=== PATIENT | female | born 1975 | race Caucasian/White ===

== ENCOUNTER 2016-02-13 13:50 | Emergency (ER) | payer MEDICAID, OTHER ==
[2016-02-13] MEDS ORDERED: Naproxen 500 MG TAB ONE (14:24)
[2016-02-13] MEDS ORDERED: HYDROcodone/Acetaminophen 10/325 mg Tablet ONE (14:24)
--- NOTE | 2016-02-13 14:46 | RAD ---
RIGHT SHOULDER 3 VIEWS: HISTORY: Joint pain. FINDINGS: Deformity to the distal clavicle is compatible with an old fracture. No signs of any acute fracture or dislocation. IMPRESSION: No evidence of acute injury. POS: ERMA
--- NOTE | 2016-02-13 15:42 | ERRECORD ---
[facility] EMERGENCY RECORD HPI SHOULDER (14:24 LLDO) CHIEF COMPLAINT: Patient presents for evaluation of decreased range of motion, Patient presents for evaluation of decreased use, Patient presents for evaluation of injury, Patient presents for evaluation of pain, Patient presents for evaluation of tenderness, Denies suspected foreign body, Patient presents for evaluation of weakness, Patient presents for evaluation of right shoulder. pain for 3+ days. not sure of the cause but has a couple of possible triggere. see triage note. has about 80% reduction in rom and a globally very tender shuolder and distal clavicle. has full rom and sensation of elbow distad. HISTORIAN: History provided by patient. MECHANISM OF INJURY: Unknown mechanism, Mechanism of injury: Sport or activity, Mechanism of injury is unknown, No alcohol use associated with this incident, No drug use associated with this incident, No domestic violence associated with this incident. LOCATION: Symptoms are generalized, Radiation is not present, Patient is right handed. QUALITY: Pain is dull in nature, described as aching, described as BECOMES SHARP WITH MOVEMENT OR PALPATION. SEVERITY: Maximum severity of symptoms severe, Currently symptoms are moderate, WORSE WITH MOVEMENT OR PALPATION. TIME COURSE: Sudden onset of symptoms, Symptoms are worsening, are constant. ASSOCIATED WITH: Associated with decreased range of motion, Associated with decreased use, Associated with swelling. EXACERBATED BY: Patient's condition exacerbated by movement, Patient's condition exacerbated by PALPATION. RELIEVED BY: Patient's condition relieved by remaining still, Patient's condition relieved by rest. ROS CONSTITUTIONAL: Negative constitutional review of systems, Historian denies chills, denies fatigue, denies fever. (14:32 LLDO) EYES: Negative eye review of systems, Historian denies eye pain, denies eye redness, denies eye discharge. (14:32 LLDO) ENT: Negative ears, nose, throat review of systems, Historian denies epistaxis, denies rhinorrhea, denies sinus pain, denies sore throat. (14:32 LLDO) MUSCULOSKELETAL: Historian reports arthralgias, denies back pain, denies deformity, reports fall, reports injury, reports joint swelling, reports myalgias, denies neck pain. ONLY IN HPI. (14:28 LLDO) SKIN: Negative skin review of systems, Historian denies cellulitis, denies rash, denies skin changes, denies skin lesions. (14:32 LLDO) NEUROLOGIC: Negative neurologic review of systems, Historian &a-1R&a+25V*p+0X*j3752O*c202B*c15G*c2P*p-0X&a-25V&a+1R Name: Leydi Shafer : 1975 F40 MedRec: [id number] AcctNum: [id number] Prepared: SatFeb 13, 2016 23:14 by Interface Page [address] [facility] EMERGENCY RECORD denies confusion, denies dizziness, denies focal weakness, denies mental status changes. (14:32 LLDO) HEMO/LYMPHATIC: Normal hematologic/lymphatic system review, Historian denies abnormal blood clotting, denies gum bleeding, denies petechiae. (14:32 LLDO) ALLERGIC/IMMUNOLOGIC: Normal allergy/immunologic system review, Historian denies eczema, denies environmental allergies, denies food allergies. (14:32 LLDO) PSYCHIATRIC: Negative psychiatric review of systems, Historian denies alcohol abuse, denies anxiety, denies depression, denies drug abuse, denies hallucinations. (14:32 LLDO) NOTES: All systems reviewed, negative except as described above. (14:28 LLDO) PAST MEDICAL HISTORY MEDICAL HISTORY: Past medical history includes pulmonary disease, asthma. (14:00 MDEB) FEMALE SURGICAL HISTORY: Surgical history of orthopedic surgery, RIGHT FOOT, Surgical history of tubal ligation. (14:00 MDEB) PSYCHIATRIC HISTORY: Psychiatric history includes, bipolar disorder. (14:00 MDEB) SOCIAL HISTORY: Patient currently uses tobacco, Patient smokes cigarettes, Patient smokes 1/2 packs per day, Patient denies alcohol use, Patient denies drug use. (14:00 MDEB) NOTES: Nursing records reviewed, Agree with nursing records, Medication list reviewed. (14:31 LLDO) KNOWN ALLERGIES erythromycin: Reaction: Anaphylaxis Fluoxetine (Unconfirmed) MULT ANTIDEPRESSANTS (Unconfirmed) Paxil Serotonin Reuptake Inhibitors (Unconfirmed) Tramadol (Unconfirmed) UltRAM Zoloft CURRENT MEDICATIONS No recorded medications VITAL SIGNS (13:58 MDEB) VITAL SIGNS: BP: 124/61, Pulse: 78, Resp: 20, Temp: 98.1 (Tympanic), Pain: 8, O2 sat: 99 on Room Air, Time: 02/13/2016 13:58. PHYSICAL EXAM CONSTITUTIONAL: Vital Signs Reviewed, Patient afebrile, Pulse normal, Blood pressure normal, Respiratory rate normal, Patient appears, uncomfortable, Patient appears, in moderate pain distress, MILD-MOD AT REST BUT WORSE &a-1R&a+25V*p+0X*w3166R*c202B*c15G*c2P*p-0X&a-25V&a+1R Name: Leydi Shafer : 1975 F40 MedRec: [id number] AcctNum: [id number] Prepared: SatFeb 13, 2016 23:14 by Interface Page [address] [facility] EMERGENCY RECORD WITH ANY MOVEMENT OR PALPATION, Patient alert and oriented to person, place and time, Nursing notes reviewed. (14:29 LLDO) HEAD: Head exam normal, Head exam included findings of head atraumatic, normocephalic. (14:32 LLDO) EYES: Eye exam normal, Eye exam included findings of eyelids normal to inspection, Pupils equally round and reactive to light, Extraocular muscles intact. (14:32 LLDO) ENT: ENT exam normal, Ear exam normal, Nose exam normal. (14:32 LLDO) NECK: Neck exam normal, Neck exam included findings of normal range of motion, Trachea midline, no meningeal signs, no tenderness. (14:32 LLDO) BACK: Back exam normal, Back exam included findings of normal inspection, range of motion normal. (14:32 LLDO) UPPER EXTREMITY: Left clavicle exam normal, Right clavicle exam included findings of, tenderness, Left shoulder exam normal, Right shoulder exam included findings of, swelling, tenderness, active range of motion abnormal, passive range of motion abnormal, distal pulses normal, capillary refill less than 2 seconds, distal motor intact, distal sensory intact, axillary nerve intact, Left upper arm exam normal, Right upper arm exam included findings of, tenderness, Left elbow exam normal, Right elbow exam normal, Left forearm exam normal, Right forearm exam normal, Left wrist exam normal, Right wrist exam normal, Left hand exam normal, Right hand exam normal. (14:29 LLDO) LOWER EXTREMITY: Lower extremity exam normal, Lower extremity exam included findings of inspection normal, Range of motion normal. (14:32 LLDO) NEURO: Neuro exam normal, Neuro exam findings include patient oriented to person, place and time, Speech normal, [place] coma scale 15. (14:32 LLDO) SKIN: Skin exam normal, Skin exam included findings of skin warm, dry, and normal in color, no rash. (14:32 LLDO) PSYCHIATRIC: Psychiatric exam normal, Psychiatric exam included findings of patient oriented to person place and time, Normal affect. (14:32 LLDO) MEDICATION ADMINISTRATION SUMMARY Drug Name: [place], Dose Ordered: 10-325 mg, Route: Oral, Status: Given, Time: 14:25 02/13/2016, Drug Name: Naprosyn, Dose Ordered: 500 mg, Route: Oral, Status: Given, Time: 14:25 02/13/2016, Detailed record available in Medication Service section. PROBLEM LIST No recorded problems DIAGNOSIS (14:59 LLDO) &a-1R&a+25V*p+0X*l7329L*c202B*c15G*c2P*p-0X&a-25V&a+1R Name: Leydi Shafer : 1975 F40 MedRec: [id number] AcctNum: [id number] Prepared: SatFeb 13, 2016 23:14 by Interface Page [address] [facility] EMERGENCY RECORD FINAL: PRIMARY: Shoulder contusion. PRESCRIPTION (14:59 LLDO) naproxen: TABLET : 500 mg : ORAL : Quantity: 1 Unit: tab(s) Route: ORAL Schedule: once a day (at bedtime) Dispense: 30 May substitute. Refills: No Refills . NOTES: No Refills. Tylenol-Codeine #3: TABLET : 300 mg-30 mg : ORAL : Quantity: 1-2 Unit: tab(s) Route: ORAL Schedule: every 4 hours prn Dispense: 24 May substitute. Refills: No Refills POTENTIAL ALLERGY REACTION: 'UltRAM [tramadol/tramadol HCl]' Override Rationale: Reviewed with patient, pt says can safely take this med. NOTES: ^s=No Refills No Refills. DISPOSITION PATIENT: Disposition Type: Discharge, Disposition: *Discharge Home. (14:59 MISAEL) Patient left the department. (15:36 KRISHAN) Muñiz: MISAEL=MD Monet, Roger NICKERSON=SPIKE Holm, Iesha &a-1R&a+25V*p+0X*j1560X*c202B*c15G*c2P*p-0X&a-25V&a+1R Name: Leydi Shafer : 1975 F40 MedRec: [id number] AcctNum: [id number] Prepared: SatFeb 13, 2016 23:14 by Interface Page 4 of 4 pMD MTDD
--- NOTE | 2016-02-13 15:46 | PICIS ---
[facility] EMERGENCY RECORD TRIAGE (14:00 MDEB) PATIENT: NAME: Leydi Shafer, AGE: 40, GENDER: female, : Sat1975, TIME OF GREET: SatFeb 13, 2016 13:51, PREFERRED LANGUAGE: Serbian, RACE: WHITE, ETHNICITY: Not or , ECODE BILLING MAP: [facility], SSN: [id number], Zip Code: [address], KG WEIGHT: 118.84, PHONE: , , , PERSON ID: [id number], PCP: HELADIO. (14:00 MDEB) TRIAGE NOTES: R SHOULDER PAIN - HAS BEEN HORSEBACK RIDING ET ROLLED A 4 GREWAL 4 DAYS AGO. (14:00 MDEB) COMPLAINT: RT SHOULDER PAIN. (14:00 MDEB) ADMISSION: URGENCY: 3 Urgent, ADMISSION SOURCE: Home, TRANSPORT: Walk-in, BED: TRIAGE. (14:00 MDEB) ASSESSMENT: Assessment: SELF LIMITING ROM - FULL ROM FROM ELBOW TO HAND. (14:00 MDEB) PAIN: Patient complains of pain described as, aching, on a scale 0-10 patient rates pain as 8. (14:00 MDEB) IMMUNIZATIONS: Tetanus immunization up to date. (14:00 MDEB) TRIAGE SCREENING: Patient denies suicidal ideation, Patient denies presence of domestic violence. (14:00 MDEB) PROVIDERS: TRIAGE NURSE: Iesha Holm RN. (14:00 MDEB) VITAL SIGNS: BP 124/61, Pulse 78, Resp 20, Temp 98.1, (Tympanic), Pain 8, O2 Sat 99, on Room Air, Time 02/13/2016 13:58. (13:58 MDEB) PREVIOUS VISIT ALLERGIES: erythromycin, Paxil, UltRAM, Zoloft. (14:00 MDEB) KNOWN ALLERGIES erythromycin: Reaction: Anaphylaxis Fluoxetine (Unconfirmed) MULT ANTIDEPRESSANTS (Unconfirmed) Paxil Serotonin Reuptake Inhibitors (Unconfirmed) Tramadol (Unconfirmed) UltRAM Zoloft CURRENT MEDICATIONS No recorded medications VITAL SIGNS (13:58 MDEB) VITAL SIGNS: BP: 124/61, Pulse: 78, Resp: 20, Temp: 98.1 (Tympanic), Pain: 8, O2 sat: 99 on Room Air, Time: 02/13/2016 13:58. NURSING ASSESSMENT: EXTREMITY UPPER (14:00 KRISHAN) CONSTITUTIONAL: Patient arrives ambulatory, Gait steady, History obtained from patient, Patient appears, anxious, in distress due to pain, uncomfortable, Patient cooperative, Patient alert, Oriented to person, place and time, Skin warm, Skin dry, Skin normal in color, Mucous membranes pink, Mucous &a-1R&a+25V*p+0X*r1425T*c202B*c15G*c2P*p-0X&a-25V&a+1R Name: Leydi Shafer : 1975 F40 MedRec: [id number] AcctNum: [id number] Prepared: SatFeb 13, 2016 23:20 by Interface Page 1 of 6 pMD [facility] EMERGENCY RECORD membranes moist, Patient is well-groomed, Patient complains of R SHOUDLER PAIN FOR SEVERAL DAYS, PT REPORTS SHE HAS BEEN HORSEBACK RIDING ET ON A 4 GREWAL THAT TIPPED OVER ON THE R SIDE AT APPROX 20 MPH - SHE IS UNCLEAR OF WHICH EVENT IS CAUSING THE PAIN. PAIN: aching pain, to the right shoulder, on a scale 0-10 patient rates pain as 8, Pain exacerbated by nothing, Nothing has been tried to alleviate the pain. LEFT UPPER EXTREMITY: Left upper extremity assessment findings include capillary refill less than 2 seconds, Skin color normal to hand, Skin temperature to hand warm, Distal sensation intact, Muscle tone normal. RIGHT UPPER EXTREMITY: Right upper extremity assessment findings include capillary refill less than 2 seconds, Skin color normal to hand, Skin temperature to hand warm, Distal sensation intact, Muscle tone normal, radial pulse is +4, brachial pulse is +4, Inspection findings include swelling, to R SHOULDER, SLIGHT SWELLING - NO NOTED ECHHYMOSIS TO SHOULDER. NOTES: Emotional support needed and given, Patient tolerated procedure well. SAFETY: Cart/Stretcher in lowest position, Family at bedside, Call light within reach, Hospital ID band on. ORDER DETAILS Order Name: Miscellaneous Nurse Order(s), Status: Done, Time: 14:18 02/13/2016, User: KRISHAN, - Ordered for: MD Healy Lloyd, - Entered by: MD Healy Lloyd - SatFeb 13, 2016 14:14, - Quantity: 1, Order Name: XR Shoulder Rt 3 View STANDARD, Status: Active, Time: 14:12 02/13/2016, User: LLDO, - Ordered for: MD Healy Lloyd, - Entered by: MD Healy Lloyd - SatFeb 13, 2016 14:12, - Quantity: 1. MEDICATION ADMINISTRATION SUMMARY Drug Name: [place], Dose Ordered: 10-325 mg, Route: Oral, Status: Given, Time: 14:25 02/13/2016, Drug Name: Naprosyn, Dose Ordered: 500 mg, Route: Oral, Status: Given, Time: 14:25 02/13/2016, Detailed record available in Medication Service section. MEDICATION SERVICE (14:25 LLDO) Naprosyn: Order: Naprosyn (naproxen) - Dose: 500 mg : Oral Schedule: Now Ordered by: Roger Healy MD &a-1R&a+25V*p+0X*e9491G*c202B*c15G*c2P*p-0X&a-25V&a+1R Name: Leydi Shafer : 1975 F40 MedRec: [id number] AcctNum: [id number] Prepared: SatFeb 13, 2016 23:20 by Interface Page 2 of 6 D [facility] EMERGENCY RECORD Entered by: Roger Healy MD SatFeb 13, 2016 14:19 , Acknowledged by: Iesha Holm RN SatFeb 13, 2016 14:23 Documented as given by: Iesha Holm RN SatFeb 13, 2016 14:25 Patient, Medication, Dose, Route and Time verified prior to administration. Amount given: 500 MG, Site: Medication administered P.O., Correct patient, time, route, dose and medication confirmed prior to administration, Patient advised of actions and side-effects prior to administration, Allergies confirmed and medications reviewed prior to administration, Patient in position of comfort, Cart in lowest position. [place]: Order: [place] (hydrocodone bitartrate/acetaminophen) - Dose: 10-325 mg : Oral POTENTIAL ALLERGY REACTION: 'UltRAM [tramadol/tramadol HCl]' - Reviewed with patient, pt says can safely take this med Schedule: Now Ordered by: Roger Healy MD Entered by: Roger Healy MD SatFeb 13, 2016 14:19 , Acknowledged by: Iesha Holm RN SatFeb 13, 2016 14:23 Documented as given by: Iesha Holm RN SatFeb 13, 2016 14:25 Patient, Medication, Dose, Route and Time verified prior to administration. Amount given: 10/325 MG, Site: Medication administered P.O., Correct patient, time, route, dose and medication confirmed prior to administration, Patient advised of actions and side-effects prior to administration, Allergies confirmed and medications reviewed prior to administration, Patient in position of comfort, Cart in lowest position, PT JUST RETURNED FROM XRAY ET SLING REPOSITIONED. HPI SHOULDER (14:24 LLDO) CHIEF COMPLAINT: Patient presents for evaluation of decreased range of motion, Patient presents for evaluation of decreased use, Patient presents for evaluation of injury, Patient presents for evaluation of pain, Patient presents for evaluation of tenderness, Denies suspected foreign body, Patient presents for evaluation of weakness, Patient presents for evaluation of right shoulder. pain for 3+ days. not sure of the cause but has a couple of possible triggere. see triage note. has about 80% reduction in rom and a globally very tender shuolder and distal clavicle. has full rom and sensation of elbow distad. HISTORIAN: History provided by patient. MECHANISM OF INJURY: Unknown mechanism, Mechanism of injury: Sport or activity, Mechanism of injury is unknown, No alcohol use associated with this incident, No drug use associated with this incident, No domestic violence associated with this incident. LOCATION: Symptoms are generalized, Radiation is not present, Patient is right handed. QUALITY: Pain is dull in nature, described as aching, described as BECOMES SHARP WITH MOVEMENT OR PALPATION. SEVERITY: &a-1R&a+25V*p+0X*f9370Q*c202B*c15G*c2P*p-0X&a-25V&a+1R Name: Leydi Shafer : 1975 F40 MedRec: [id number] AcctNum: [id number] Prepared: SatFeb 13, 2016 23:20 by Interface Page 3 of 6 pMD [facility] EMERGENCY RECORD Maximum severity of symptoms severe, Currently symptoms are moderate, WORSE WITH MOVEMENT OR PALPATION. TIME COURSE: Sudden onset of symptoms, Symptoms are worsening, are constant. ASSOCIATED WITH: Associated with decreased range of motion, Associated with decreased use, Associated with swelling. EXACERBATED BY: Patient's condition exacerbated by movement, Patient's condition exacerbated by PALPATION. RELIEVED BY: Patient's condition relieved by remaining still, Patient's condition relieved by rest. ROS CONSTITUTIONAL: Negative constitutional review of systems, Historian denies chills, denies fatigue, denies fever. (14:32 LLDO) EYES: Negative eye review of systems, Historian denies eye pain, denies eye redness, denies eye discharge. (14:32 LLDO) ENT: Negative ears, nose, throat review of systems, Historian denies epistaxis, denies rhinorrhea, denies sinus pain, denies sore throat. (14:32 LLDO) MUSCULOSKELETAL: Historian reports arthralgias, denies back pain, denies deformity, reports fall, reports injury, reports joint swelling, reports myalgias, denies neck pain. ONLY IN HPI. (14:28 LLDO) SKIN: Negative skin review of systems, Historian denies cellulitis, denies rash, denies skin changes, denies skin lesions. (14:32 LLDO) NEUROLOGIC: Negative neurologic review of systems, Historian denies confusion, denies dizziness, denies focal weakness, denies mental status changes. (14:32 LLDO) HEMO/LYMPHATIC: Normal hematologic/lymphatic system review, Historian denies abnormal blood clotting, denies gum bleeding, denies petechiae. (14:32 LLDO) ALLERGIC/IMMUNOLOGIC: Normal allergy/immunologic system review, Historian denies eczema, denies environmental allergies, denies food allergies. (14:32 LLDO) PSYCHIATRIC: Negative psychiatric review of systems, Historian denies alcohol abuse, denies anxiety, denies depression, denies drug abuse, denies hallucinations. (14:32 LLDO) NOTES: All systems reviewed, negative except as described above. (14:28 LLDO) PAST MEDICAL HISTORY MEDICAL HISTORY: Past medical history includes pulmonary disease, asthma. (14:00 MDEB) FEMALE SURGICAL HISTORY: Surgical history of orthopedic surgery, RIGHT FOOT, Surgical history of tubal ligation. (14:00 MDEB) PSYCHIATRIC HISTORY: Psychiatric history includes, bipolar &a-1R&a+25V*p+0X*w8552R*c202B*c15G*c2P*p-0X&a-25V&a+1R Name: Leydi Shafer : 1975 F40 MedRec: [id number] AcctNum: [id number] Prepared: SatFeb 13, 2016 23:20 by Interface Page 4 of 6 pMD [facility] EMERGENCY RECORD disorder. (14:00 MDEB) SOCIAL HISTORY: Patient currently uses tobacco, Patient smokes cigarettes, Patient smokes 1/2 packs per day, Patient denies alcohol use, Patient denies drug use. (14:00 MDEB) NOTES: Nursing records reviewed, Agree with nursing records, Medication list reviewed. (14:31 LLDO) PHYSICAL EXAM CONSTITUTIONAL: Vital Signs Reviewed, Patient afebrile, Pulse normal, Blood pressure normal, Respiratory rate normal, Patient appears, uncomfortable, Patient appears, in moderate pain distress, MILD-MOD AT REST BUT WORSE WITH ANY MOVEMENT OR PALPATION, Patient alert and oriented to person, place and time, Nursing notes reviewed. (14:29 LLDO) HEAD: Head exam normal, Head exam included findings of head atraumatic, normocephalic. (14:32 LLDO) EYES: Eye exam normal, Eye exam included findings of eyelids normal to inspection, Pupils equally round and reactive to light, Extraocular muscles intact. (14:32 LLDO) ENT: ENT exam normal, Ear exam normal, Nose exam normal. (14:32 LLDO) NECK: Neck exam normal, Neck exam included findings of normal range of motion, Trachea midline, no meningeal signs, no tenderness. (14:32 LLDO) BACK: Back exam normal, Back exam included findings of normal inspection, range of motion normal. (14:32 LLDO) UPPER EXTREMITY: Left clavicle exam normal, Right clavicle exam included findings of, tenderness, Left shoulder exam normal, Right shoulder exam included findings of, swelling, tenderness, active range of motion abnormal, passive range of motion abnormal, distal pulses normal, capillary refill less than 2 seconds, distal motor intact, distal sensory intact, axillary nerve intact, Left upper arm exam normal, Right upper arm exam included findings of, tenderness, Left elbow exam normal, Right elbow exam normal, Left forearm exam normal, Right forearm exam normal, Left wrist exam normal, Right wrist exam normal, Left hand exam normal, Right hand exam normal. (14:29 LLDO) LOWER EXTREMITY: Lower extremity exam normal, Lower extremity exam included findings of inspection normal, Range of motion normal. (14:32 LLDO) NEURO: Neuro exam normal, Neuro exam findings include patient oriented to person, place and time, Speech normal, [place] coma scale 15. (14:32 LLDO) SKIN: Skin exam normal, Skin exam included findings of skin warm, dry, and normal in color, no rash. (14:32 LLDO) PSYCHIATRIC: Psychiatric exam normal, Psychiatric exam included findings of patient oriented to person place and time, Normal affect. (14:32 LLDO) &a-1R&a+25V*p+0X*z2202E*c202B*c15G*c2P*p-0X&a-25V&a+1R Name: Leydi Shafer : 1975 F40 MedRec: [id number] AcctNum: [id number] Prepared: SatFeb 13, 2016 23:20 by Interface Page 5 of 6 pMD [facility] EMERGENCY RECORD EVENTS TRANSFER: Triage to Emergency Triage. (SatFeb 13, 2016 14:00 MDEB) Emergency Triage to Main ED -05. (14:12 MDEB) Removed from Emergency Main ED -05. (15:36 MDEB) PROBLEM LIST No recorded problems DIAGNOSIS (14:59 LLDO) FINAL: PRIMARY: Shoulder contusion. DISPOSITION PATIENT: Disposition Type: Discharge, Disposition: *Discharge Home. (14:59 LLDO) Patient left the department. (15:36 MDEB) INSTRUCTION (15:00 LLDO) DISCHARGE: SHOULDER CONTUSION. FOLLOWUP: Follow up with Primary Care Physician in 10-14 days. SPECIAL: Follow-up with your PCP. PRESCRIPTION (14:59 LLDO) naproxen: TABLET : 500 mg : ORAL : Quantity: 1 Unit: tab(s) Route: ORAL Schedule: once a day (at bedtime) Dispense: 30 May substitute. Refills: No Refills . NOTES: No Refills. Tylenol-Codeine #3: TABLET : 300 mg-30 mg : ORAL : Quantity: 1-2 Unit: tab(s) Route: ORAL Schedule: every 4 hours prn Dispense: 24 May substitute. Refills: No Refills POTENTIAL ALLERGY REACTION: 'UltRAM [tramadol/tramadol HCl]' Override Rationale: Reviewed with patient, pt says can safely take this med. NOTES: ^s=No Refills No Refills. IMAGING *DISCHARGE INSTRUCTIONS RECEIPT: Image captured from scanner. (22:50 KRISHAN) *SUPPLY CHARGE SHEET: Image captured from scanner. (22:51 KRISHAN) ADMIN (23:08 MISAEL) DIGITAL SIGNATURE: MD Healy Lloyd. Muñiz: LL=MD Monet, Roger DOZIEREB=SPIKE Holm, Iesha &a-1R&a+25V*p+0X*a5445V*c202B*c15G*c2P*p-0X&a-25V&a+1R Name: SoniLeydi roberts Chantelle : 1975 F40 MedRec: [id number] AcctNum: [id number] Prepared: SatFeb 13, 2016 23:20 by Interface Page 6 of 6 pMD MTDD
== END 2016-02-13 15:35 | disposition home or self-care (01) ==
LOC: MADERS 13:50
DX: S40.011A Contusion of right shoulder, initial encounter (principal); J45.909 Unspecified asthma, uncomplicated; F31.9 Bipolar disorder, unspecified; F17.210 Nicotine dependence, cigarettes, uncomplicated; Z98.51 Tubal ligation status; X58.XXXA Exposure to other specified factors, initial encounter
CPT/HCPCS: 99283

== ENCOUNTER 2022-11-21 22:47 | Emergency (ER) | payer OTHER, SELFPAY ==
[2022-11-21] MEDS ORDERED: Dexamethasone 10 MG/ML VIAL ONE (23:13)
[2022-11-21] MEDS ORDERED: Lorazepam 2 MG/ML VIAL ONE (23:13)
== END 2022-11-22 01:40 | disposition home or self-care (01) ==
LOC: MADERS 22:47
DX: M62.830 Muscle spasm of back (principal); F17.210 Nicotine dependence, cigarettes, uncomplicated; X50.0XXA Overexertion from strenuous movement or load, initial encounter; Y93.89 Activity, other specified; Y92.003 Bedroom of unspecified non-institutional (private) residence as the place of occurrence of the external cause; Z79.899 Other long term (current) drug therapy
CPT/HCPCS: 94760; 96374; 96375; J1100; J2060

== ENCOUNTER 2023-03-03 13:42 | Emergency (ER) | payer OTHER ==
[~2023-03-03 13:42] MED LIST: Iopamidol 370 76% 100 ML VIAL ONE
[2023-03-03 14:26] LABS: Bilirubin Negative (Negative); Blood, Urine Negative (Negative); Clarity Clear (Clear); Glucose, Urine (Dipstick) Negative (Negative); Ketone, Urine Negative (Negative); Leukocyte Trace (Negative); Nitrite Negative (Negative); Protein, Urine (Dipstick) Negative (Neg-Trace); Urobilinogen 0.2 mg/dL (Less than 2); pH, Urine 5.5 (5.0-9.0)
[2023-03-03 14:33] LABS: Specific Gravity, Urine 1.024 (1.002-1.036)
[2023-03-03 14:34] LABS: Bacteria/HPF Rare-Few HPF (None Seen); CAUTI Indications for Culture Pelvic or flank pain; Pregnancy Test - Urine (BHCG) Negative (Negative); Pregu Control Background? CLEAR/WHITE (CLR/WHITE); Pregu Control Bar Appear? YES (CONTROL BAR); RBC/HPF 0-3 HPF (0-3); Specific Gravity 1.024 (1.002-1.036); Urine Culture Reflex No No; WBC/HPF 0-3 HPF (0-3)
[2023-03-03 15:23] LABS: #Basophils 0.1 thou/uL (0.0-0.2); #Eosinphils 0.2 thou/uL (0.0-0.7); #Lymphocytes 1.7 thou/uL (1.20-3.40); #Monocytes 0.6 thou/uL (0.11-0.59); #Neutrophils 4.9 thou/uL (1.40-6.50); %Basophils 0.9 % (0.0-1.0); %Eosinophils 3.2 % (0.0-10.0); %Lymphocytes 22.5 % (21.0-51.0); %Monocytes 8.1 % (0.0-10.0); %Neutrophils 65.3 % (42.0-75.0); Hematocrit 39.7 % (36.0-47.0); Mean Corpuscular HGB CONC 32.8 g/dL (32.0-36.0); Mean Corpuscular Hemoglobin 27.2 pg (27.0-31.0); Mean Platelet Volume 11.2 fL (7.4-10.4); Platelet Count 197 10x3/uL (130-400); RBC Distribution Width 13.4 % (11.5-14.5); Red Blood Cell (RBC) Count 4.79 mill/uL (4.20-5.40); White Blood Cell (WBC) Count 7.5 10x3/uL (4.8-10.8)
[2023-03-03 15:39] LABS: ALT (SGPT) 15 U/L (8-55); AST (SGOT) 19 U/L (5-34); Alkaline Phosphatase 93 U/L (40-110); Anion Gap 12 mmol/L (10-20); BUN (Urea Nitrogen) 17 mg/dL (7.0-18.7); Bilirubin, Total 0.4 mg/dL (0.2-1.2); Calc. Creatinine Clearance 0 mL/min (70-130); Calcium 9.4 mg/dL (7.8-10.44); Carbon Dioxide 26 mmol/L (22-29); Chloride 103 mmol/L (98-107); Estimated GFR 92; Glucose 86 mg/dL (70-105); Lipase 39 U/L (8-78); Sodium 137 mmol/L (136-145)
== END 2023-03-03 16:08 | disposition home or self-care (01) ==
LOC: MADERS 13:42
DX: B34.9 Viral infection, unspecified (principal); M79.10 Myalgia, unspecified site; R10.9 Unspecified abdominal pain; F17.210 Nicotine dependence, cigarettes, uncomplicated
CPT/HCPCS: 74177; 80053; 81001; 81025; 83690; 85025; Q9967

== ENCOUNTER 2023-04-19 17:44 | Emergency (ER) | payer OTHER | END 2023-04-19 18:31 | disposition left against medical advice (07) | LOC: MADERS 17:44 | DX: Z53.21 Procedure and treatment not carried out due to patient leaving prior to being seen by health care provider (principal) ==

== ENCOUNTER 2023-04-20 20:06 | Emergency (ER) | payer OTHER ==
[2023-04-20] MEDS ORDERED: Sulfameth/Trimethoprim DS 800-160mg TAB ONE (20:29)
== END 2023-04-20 20:39 | disposition home or self-care (01) ==
LOC: MADERS 20:06
DX: L03.114 Cellulitis of left upper limb (principal); I80.8 Phlebitis and thrombophlebitis of other sites; F17.210 Nicotine dependence, cigarettes, uncomplicated
CPT/HCPCS: 99283

== ENCOUNTER 2023-04-21 15:27 | Emergency (ER) | payer OTHER ==
[2023-04-21] MEDS ORDERED: Morphine 10 MG/ML VIAL ONE (16:31)
[2023-04-21] MEDS ORDERED: Lidocaine 1% PF 5 ML VIAL ONE (16:31)
[2023-04-21] MEDS ORDERED: cefTRIAXone (ROCEPHIN) 1 GM VIAL ONE (16:31)
[2023-04-21] MEDS ORDERED: Sulfameth/Trimethoprim DS 800-160mg TAB ONE (16:54)
== END 2023-04-21 16:56 | disposition home or self-care (01) ==
LOC: MADERS 15:27
DX: L03.114 Cellulitis of left upper limb (principal); F17.210 Nicotine dependence, cigarettes, uncomplicated
CPT/HCPCS: 96372; 99283; J0696; J2270